=== PATIENT | male | born 1975 | race Caucasian/White ===

== ENCOUNTER → 2019-08-08 | Outpatient (CLI) | payer SELFPAY | LOC: LAB.O 15:11 | PROVIDERS: ATTEND Registered Nurse General Practice | DX: E11.9 Type 2 diabetes mellitus without complications (principal) ==

== ENCOUNTER → 2020-08-28 | Outpatient (CLI) | payer BC | LOC: YCFC.O 08:31 | PROVIDERS: ATTEND Nurse Practitioner Family | DX: E11.9 Type 2 diabetes mellitus without complications (principal); E66.3 Overweight ==